=== PATIENT | male | born 1955 | race Caucasian/White ===

== ENCOUNTER 2017-07-15 17:04 | Inpatient (IN) | payer OTHER ==
[~2017-07-15] VITALS: Ht 182.9 cm; Wt 109.8 kg
[~2017-07-15 17:04] MED LIST: PERCOCET 5-3251 EACH PO
--- NOTE | 2017-07-15 17:58 | RADIOLOGY REPORT ---
EXAMINATION: XR CHEST CLINICAL INFORMATION: 62-year-old man with chest pain. COMPARISON: 03/22/2016 chest radiograph TECHNIQUE: 2 views of the chest were obtained. FINDINGS: The lungs are well expanded and clear. No focal airspace consolidation or pulmonary edema is appreciated. Heart size is within the range of normal. There are no pleural effusions. IMPRESSION: No radiographic evidence of an acute cardiopulmonary process.
[2017-07-15 19:51] LABS: ABSOLUTE BASOPHIL COUNT 0 /CUMM (0.0-0.2); ABSOLUTE EOSINOPHIL COUNT 0.1 /CUMM (0.0-0.7); ABSOLUTE GRANULOCYTE CT 6.9 /CUMM (1.4-6.5); ABSOLUTE LYMPH COUNT 1.4 /CUMM (1.2-3.4); ABSOLUTE MONOCYTE COUNT 0.7 /CUMM (0.10-0.60); BASOPHIL % 0.3 % (0.0-2.0); EOSINOPHIL % 1.5 % (0-5); GRANULOCYTE % 75.3 % (42.2-75.2); HEMATOCRIT 50.3 % (42-52); MEAN CORPUSCULAR HGB 26.6 PG (27.0-31.0); MEAN CORPUSCULAR HGB CONC 32.5 G/DL (33.0-37.0); MEAN PLATELET VOLUME 9.4 FL (7.4-10.4); PLATELET COUNT 197 /CUMM (130-400); RBC DISTRIBUTION WIDTH 13.6 % (11.5-14.5); RED BLOOD CELL CT 6.14 /CUMM (4.70-6.10); WHITE BLOOD CELL COUNT 9.2 /CUMM (4.8-10.8)
--- NOTE | 2017-07-15 20:26 | ED CARDIAC/CP/PALPITATIONS ---
History of Present Illness General Chief Complaint: Chest Pain Stated Complaint: HEARTBURN CHEST PRESSURE Source: patient Exam Limitations: no limitations Vital Signs & Intake/Output Vital Signs & Intake/Output Vital Signs Date Time Temp Pulse Resp B/P B/P Pulse O2 O2 Flow FiO2 Mean Ox Delivery Rate 07/15 2325 78 16 124/74 98 Nasal 2.0L Cannula 07/15 2301 131/60 07/15 2302 131/60 07/15 2230 137/76 07/15 2141 92 16 137/76 99 Room Air 07/15 2044 97.3 88 18 130/87 98 Room Air 07/15 1715 98.6 106 18 178/83 98 Room Air ED Intake and Output 07/16 0000 07/15 1200 Intake Total 30 Output Total Balance 30 Intake, Oral 30 Patient 240 lb Weight Weight Reported by Patient Measurement Method Allergies Coded Allergies: No Known Drug Allergies (03/22/16) Reconcile Medications Multivitamin (Daily Multiple Vitamin) 1 EACH TABLET 1 TAB PO DAILY Supplement (Reported) Triage Note: 62 YO MALE TO TRIAGE C/O CHEST PAIN IN CENTER OF CHEST AND L ARM TINGLING ON SATURDAY. STATE TOOK PEPTO BISMOL AND IT SUBSIDED THE PAIN IN HIS CHEST. STATES IT HAPPENED AGAIN TODAY. STATES THE HEARTBURN LASTED TO APPROX 2 HOURS TODAY. STATES HE HAS BEEN BELCHING ALOT TODAY. Triage Nurses Notes Reviewed? yes Onset: Gradual Duration: day(s):, intermittent Timing: recent history Location: central Radiation: left arm Activities at Onset: none Modifying Factors: Improves With: rest. Aspirin Today: no aspirin today Associated Symptoms: nausea/vomiting HPI: 62 yo gentleman presents with 2 episodes of chest pain. He notes the first episode was 3 days ago, lasted 2-3 hours. "I felt a pressure on my chest and my left arm was really heavy and tingling." The second episode happened earlier today. "The same thing happened... I felt a pressure in my chest... and my left arm was tingling.... I still feel it... it's maybe a 2-3 out of 10." He notes no dyspnea, diaphoresis, shortness of breath, syncopal symptoms. He is otherwise well. Past History Travel History Traveled to [place] past 21 day No Medical History Any Pertinent Medical History? 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 No Review of Systems Review of Systems Constitutional: Reports: no symptoms. EENTM: Reports: no symptoms. Respiratory: Reports: no symptoms. Cardiovascular: Reports: no symptoms. GI: Reports: no symptoms. Genitourinary: Reports: no symptoms. Musculoskeletal: Reports: no symptoms. Skin: Reports: no symptoms. Neurological/Psychological: Reports: no symptoms. Hematologic/Endocrine: Reports: no symptoms. Immunologic/Allergic: Reports: no symptoms. All Other Systems: Reviewed and Negative Physical Exam Physical Exam General Appearance: well developed/nourished, no apparent distress Head: atraumatic, normal appearance Eyes: Bilateral: normal appearance. Ears, Nose, Throat: normal pharynx, normal ENT inspection Neck: normal inspection, supple, full range of motion Respiratory: normal breath sounds, chest non-tender, no respiratory distress, quiet respiration, lungs clear Cardiovascular: regular rate/rhythm Gastrointestinal: normal bowel sounds, soft, non-tender, no organomegaly Back: normal inspection, normal range of motion Extremities: normal inspection, normal capillary refill, normal range of motion, no edema Neurologic/Psych: no motor/sensory deficits, awake, alert, oriented x 3 Skin: intact, normal color, warm/dry Core Measures ACS in differential dx? Yes No ASA d/t pt given aspirin CVA/TIA Diagnosis No Sepsis Present: No Sepsis Focused Exam Completed? No Progress Differential Diagnosis: AMI, aortic dissection, CHF/pulm edema, musculoskeletal pain, myocarditis, pneumonia, pulmonary embolism Plan of Care: Orders Procedure Date/time Status Nothing by Mouth 07/16 B Active TROPONIN LEVEL 07/16 0730 Active EKG 07/16 0700 Active TROPONIN LEVEL 07/16 0130 Active EKG 07/16 0130 Active ECHOCARDIOGRAM 07/15 2322 Active Lab Add-on Test 07/15 2318 Active Admit to inpatient 07/15 2314 Active TRC EVALUATION (GEN) 07/16 2211 Active OXYGEN SETUP (GEN) 07/16 2211 Active Pathway - chart 07/16 2211 Active House Staff 07/16 2211 Active Patient Data 07/16 2211 Active Code Status 07/16 2211 Active EKG 07/16 2207 Active Patient Data 07/15 2058 Active EKG 07/15 2041 Active MAGNESIUM 07/15 1932 Active LIPID PANEL 07/15 1932 Active GLYCOSYLATED HGB 07/15 193 Active TROPONIN LEVEL 07/15 171 Active D-DIMER 07/15 1712 Complete COMPREHENSIVE METABOLIC PANEL 07/15 171 Active CBC WITHOUT DIFFERENTIAL 07/15 1712 Complete EKG 07/15 170 Active VTE Mechanical Prophylaxis 07/15 UNK Active Vital Signs 07/15 UNK Active MISTAKE 07/15 UNK Active Intake & Output 07/15 UNK Active Hemoccult 07/15 UNK Active Current Medications Sig/Osei Start time Last Medication Dose Stop Time Status Admin Aspirin 81 MG DAILY 07/16 1000 AC (Aspirin) Clopidogrel Bisulfate 75 MG DAILY 07/16 1000 AC (Plavix) Atorvastatin Calcium 80 MG 1700 07/15 2315 AC (Lipitor) Metoprolol Tartrate 25 MG BID 07/15 2244 AC 07/15 (Lopressor) 2302 Heparin Sodium 25,000 UNIT Q24H 07/15 204 AC 07/15 (Porcine) 2100 (Heparin) Sodium Chloride 500 ML Laboratory Tests 07/15/171932: Anion Gap 13, Estimated GFR > 60, BUN/Creatinine Ratio 15.5, Glucose 101 H, Hemoglobin A1c Pending, Calcium 10.5 H, Magnesium 2.1, Total Bilirubin 0.5, AST 40, ALT 36, Alkaline Phosphatase 64, Troponin I 1.43 *H, Total Protein 7.3, Albumin 4.4, Globulin 2.9, Albumin/Globulin Ratio 1.5, Triglycerides 146, Cholesterol 222 H, LDL Cholesterol, Calc 139 H, HDL Cholesterol 54, Cholesterol/HDL Ratio 4, D-Dimer High Sensitivty < 200, CBC w Diff NO MAN DIFF REQ, RBC 6.14 H, MCV 82.0, MCH 26.6 L, MCHC 32.5 L, RDW 13.6, MPV 9.4, Gran % 75.3 H, Lymphocytes % 15.4 L, Monocytes % 7.5, Eosinophils % 1.5, Basophils % 0.3, Absolute Granulocytes 6.9 H, Absolute Lymphocytes 1.4, Absolute Monocytes 0.7 H, Absolute Eosinophils 0.1, Absolute Basophils 0 Diagnostic Imaging: Viewed by Me: Radiology Read, CT Scan. Discussed w/RAD: Radiology Read, CT Scan. Radiology Impression: PATIENT: DAVON MNA PRESENT AGE: 62 PATIENT ACCOUNT NO: [id number] : 57 LOCATION: [facility] ORDERING PHYSICIAN: Slim Markham MD SERVICE DATE: 07/15/17 EXAM TYPE: CAT - CTA CHEST-PULMONARY EMBOLISM EXAMINATION: CT ANGIOGRAM OF THE CHEST WITH AND WITHOUT CONTRAST (CT PULMONARY ANGIOGRAM FOR PE) CLINICAL INFORMATION: Chest pain. Myocardial infarction. COMPARISON: Chest x-ray 2017 TECHNIQUE: Prior to contrast administration, noncontrast localization images were obtained. Subsequently, multidetector volumetric imaging was performed from the thoracic inlet to below the diaphragms following the administration of 95 mL Optiray 350 intravenous contrast. No contrast reaction reported. Sagittal, coronal, and MIP oblique sagittal reformatted images were obtained on the CT workstation, uploaded to PACS, and reviewed. Total exam dose- length product 579.65 mGy-cm. FINDINGS: QUALITY OF STUDY/CONTRAST BOLUS: Satisfactory PULMONARY ARTERIES: No central or segmental pulmonary emboli. THORACIC AORTA: No aneurysm or dissection. LUNG: Asymmetric elevation of left diaphragm over the right with left basilar linear atelectasis. The central bronchial airways are open. No bronchiectasis. No interstitial or reticular opacity. PLEURA: No pleural effusion or pneumothorax. MEDIASTINUM: Normal heart size. No pericardial effusion. No hilar or mediastinal lymphadenopathy. No evidence of septal bowing or right heart strain. CHEST WALL/AXILLA: No axillary or internal mammary lymphadenopathy. OSSEOUS STRUCTURES: Degenerative spondylosis spine with multilevel endplate spurring of the vertebrae. UPPER ABDOMEN: Unremarkable. No reflux of contrast into the hepatic veins to suggest elevated right heart pressures. IMPRESSION: 1. No evidence of pulmonary embolism. 2. No acute abnormality of the chest. VTE: negative DICTATED BY: Harsh Matthew MD DATE/TIME DICTATED:07/15/172319 SMOKE JUMPER:JORGE DATE/ TIME TRANSCRIBED:07/15/172319 CONFIDENTIAL, DO NOT COPY WITHOUT APPROPRIATE AUTHORIZATION. <Electronically signed in Other Vendor System> SIGNED BY: Harsh Matthew MD 07/15/178 CXR Impression: no acute abnormality, no infiltrates, normal size heart, normal mediastinum Initial ED EKG: nsr, non specific st changes. Repeat EKG: changed Comments: ekg follow up ... slight st seg elevation in v1... discussed with dr. renner. Departure Departure Disposition: STILL A PATIENT Condition: Stable Clinical Impression Primary Impression: Myocardial infarction Referrals: Patrick OLIVER,Dave Rivers (PCP/Family) Departure Forms: Customer Survey General Discharge Information Comments 07/15/17, 23:58.... pt is chest pain free after supportive measures. Admission Note Spoke With: Bao OLIVER PHD,Omar Oconnor Documentation of Exam: Documentation of any treatments & extenuating circumstances including Concerns Regarding Discharge (functional status, medication knowledge or non-compliance, living conditions, etc.) that warrant an admission rather than observation: 07/15/17 20:44... discussed with dr. renner.... pt to be admitted to the [facility] for medical management prior to likely cardiac cath... will check ct angio to assess for PE vs dissection in preparation for likely cath. 07/15/17, 21:50... discussed with dr. renner... subsequent ekg with suspicious v1 st seg elevation...Ekgs faxed to dr. renner.... will add lopressor 5mg iv x2 and repeat ekg. Critical Care Note Critical Care Note Critical Care Time: 30-74 min
--- NOTE | 2017-07-15 21:01 | History & Physical ---
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
--- NOTE | 2017-07-15 21:10 | History & Physical ---
General Information and HPI MD Statement: I have seen and personally examined DAVON MAN and documented this H&P. Source of Information: patient History of Present Illness: This is a 62-year-old gentleman w/no significant PMH who presented to the hospital for evaluation of chest discomfort/dyspepsia. According to the patient, he experienced an episode of heart burn and chest discomfort on Saturday which lasted for approximately 2.5 hours and resolved after taking Pepto-bismol. Today, after taking his son to the airport around 2 PM, he experienced dyspepsia , heartburning and chest discomfort which radiated to his left arm, he experienced tingling in his left arm. He tried Pepti-bismol which helped alleviating his symptoms to some extent however his chest discomfort continued and he decided to come to the hospital. The patient denies having any cardiac history, hypertension, or diabetes. He has never experienced these symptoms before Saturday. He has an active lifestyle,"[id number] steps" at work measured via his [employer]. Per patient, he usually climbs 3 flights of stairs at work without any problems. Has never had any exertional dyspnea, orthopnea or other symptoms. Denies tobacco, illicit drug use. Drinks socially. The patient reports that he has extensive cardiac history in his family, his brother had quadruple bypass at age of 50, also his father had multiple MIs. In the ED, he was noted to have elevated troponin with EKG changes. He was started on IV heparin, received aspirin, Plavix, oxygen and nitroglycerin. At the time of our interview, he reports that his chest discomfort has subsided to 1-2 out of 10 but is still present. Allergies/Medications Allergies: Coded Allergies: No Known Drug Allergies (03/22/16) Home Med list Aspirin (Aspirin*) 81 MG TAB.CHEW 81 MG PO DAILY HEART Atorvastatin Calcium 80 MG TABLET 80 MG PO 1700 CHOL Clopidogrel Bisulfate (Plavix) 75 MG TABLET 75 MG PO DAILY PRN PALTELET AGG Metoprolol Tartrate 25 MG TABLET 25 MG PO BID HEART Multivitamin (Daily Multiple Vitamin) 1 EACH TABLET 1 TAB PO DAILY Supplement (Reported) Nitroglycerin/D5w (Ntg 25 MG/250 Ml in D5w) 25 MG/250 ML (0.1 MG/ML) INFUS..BTL 10 MCG IV CONTINUOUS CP Past History Travel History Traveled to [place] past 21 day No Medical History Neurological: NONE EENT: NONE Cardiovascular: NONE Respiratory: NONE Gastrointestinal: ELIESER INGUNAL HERNIAS Hepatic: NONE Renal: NONE Musculoskeletal: NONE Psychiatric: NONE Endocrine: NONE Blood Disorders: NONE Cancer(s): 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 EENTM: Reports: no symptoms. Denies: visual changes. Cardiovascular: Reports: chest pain (chest discomfort/dyspepsia). Denies: edema, orthopena, palpitations, peripheral edema, syncope. Respiratory: Denies: cough, hemoptysis, orthopnea, short of breath, sputum production, stridor, wheezing. GI: Denies: abdominal pain, bloating, constipation, diarrhea, distention, bowel incontinence, melena, nausea, bloody stool, changes in stool, vomiting, steatorrhea. Genitourinary: Reports: no symptoms. Musculoskeletal: Reports: no symptoms. Skin: Reports: no symptoms. Neurological/Psychological: Reports: no symptoms. Hematologic/Endocrine: Reports: no symptoms. Immunologic/Allergic: Reports: no symptoms. All Other Systems: Reviewed and Negative Exam & Diagnostic Data Last 24 Hrs of Vital Signs/I&O Vital Signs Date Time Temp Pulse Resp B/P B/P Pulse O2 O2 Flow FiO2 Mean Ox Delivery Rate 07/15 2141 92 16 137/76 99 Room Air 07/15 2044 97.3 88 18 130/87 98 Room Air 07/15 1715 98.6 106 18 178/83 98 Room Air Physical Exam General Appearance Alert, Oriented X3, Cooperative, No Acute Distress Skin No Rashes, No Breakdown, No Significant Lesion Skin Temp/Moisture Exam: Warm/Dry Sepsis Skin Exam (color): Normal for Ethnicity HEENT Atraumatic, PERRLA, EOMI, Mucous Membr. moist/pink Neck Supple, No JVD, No thryomegaly, +2 Carotid Pulse wo Bruit, No LAD Lymphatic Axillary nl Cardiovascular Regular Rate, Normal S1, Normal S2, No Murmurs Lungs Clear to Auscultation, Normal Air Movement Abdomen Normal Bowel Sounds, Soft, No Tenderness, No Hepatospenomegaly, No Masses Neurological Normal Speech, Strength at 5/5 X4 Ext, Normal Tone, Sensation Intact, Cranial Nerves 3-12 NL, Reflexes 2+ Extremities No Clubbing, No Cyanosis, No Edema, Normal Pulses, No Tenderness/ Swelling Vascular Normal Pulses, Pulses Symmetrical Diagnostic Data EKG Results SR, rate 87 , ? CEFERINO in V1-V3 vs early repolarization. QTC 433. CXR Results No acute cardiopulmonary disease. Assessment/Plan Assessment: This is a 62-year-old gentleman with past medical history with no significant past medical history who presents to the ED with chest discomfort/dyspepsia. He was noted to have positive troponin with EKG changes. He was started on IV heparin, nitroglycerin, oxygen, aspirin and Plavix in the ED. Update: 07/15/17 11 pm: The patient reports that his chest pain has resolved. He is s/p IV metoprolol 5 mg x2. HR in 80s-90s on the monitor; will start metoprolol 25 BID. Assessment/plan: #Chest discomfort/dyspnea: likely 2/2 ACS. The patient has elevated troponin with EKG changes. There is? ST elevation versus repolarization in leads V1 to V3. Discussed with attending museum director, Dr. Gore, who suggests that these changes are leaning more towards early repolarization. Patient's chest pain has resolved. FERNANDO score 2 (positive biomarkers and EKG change). * Continue with supplemental oxygen, nitroglycerin * Check echocardiogram * Continue with IV heparin, aspirin and Plavix * Monitor on telemetry for any arrhythmia * Continue with metoprolol 25 BID * Will start the patient on atorvastatin 80 mg daily * Monitor electrolytes, maintain potassium above 4 and magnesium above 2 * Will check lipid profile, TFT, hemoglobin A1c * Please inform Dr. Gore if patient's chest discomfort recurs or if he develops any chest pain. #DVT prophylaxis: * Being addressed by IV heparin #CODE STATUS: * Patient is full code The case was discussed with attending Dr. Gore who agrees with the above mentioned plan. Please refer to his addendum for further recommendations. As Ranked By This Provider Problem List: 1. Myocardial infarction Core Measures/Misc (01/27) Acute Coronary Syndrome ACS Diagnosis: Yes Congestive Heart Failure Congestive Heart Failure Diagnosis No Cerebrovascular Accident CVA/TIA Diagnosis: No VTE (View Protocol) VTE Risk Factors Other No Mechanical VTE Prophylaxis d/t Other No VTE Pharm Prophylaxis d/t Other Sepsis (View protocol) Sepsis Present: No
[2017-07-15] MEDS ORDERED: DAILY MULTIPLE1 EACH PO (22:16)
--- NOTE | 2017-07-15 23:28 | CT SCAN REPORT ---
EXAMINATION: CT ANGIOGRAM OF THE CHEST WITH AND WITHOUT CONTRAST (CT PULMONARY ANGIOGRAM FOR PE) CLINICAL INFORMATION: Chest pain. Myocardial infarction. COMPARISON: Chest x-ray 07/15/2017 TECHNIQUE: Prior to contrast administration, noncontrast localization images were obtained. Subsequently, multidetector volumetric imaging was performed from the thoracic inlet to below the diaphragms following the administration of 95 mL Optiray 350 intravenous contrast. No contrast reaction reported. Sagittal, coronal, and MIP oblique sagittal reformatted images were obtained on the CT workstation, uploaded to PACS, and reviewed. Total exam dose-length product 579.65 mGy-cm. FINDINGS: QUALITY OF STUDY/CONTRAST BOLUS: Satisfactory PULMONARY ARTERIES: No central or segmental pulmonary emboli. THORACIC AORTA: No aneurysm or dissection. LUNG: Asymmetric elevation of left diaphragm over the right with left basilar linear atelectasis. The central bronchial airways are open. No bronchiectasis. No interstitial or reticular opacity. PLEURA: No pleural effusion or pneumothorax. MEDIASTINUM: Normal heart size. No pericardial effusion. No hilar or mediastinal lymphadenopathy. No evidence of septal bowing or right heart strain. CHEST WALL/AXILLA: No axillary or internal mammary lymphadenopathy. OSSEOUS STRUCTURES: Degenerative spondylosis spine with multilevel endplate spurring of the vertebrae. UPPER ABDOMEN: Unremarkable. No reflux of contrast into the hepatic veins to suggest elevated right heart pressures. IMPRESSION: 1. No evidence of pulmonary embolism. 2. No acute abnormality of the chest. VTE: negative
[2017-07-16 01:56] VITALS: BP 150/60
--- NOTE | 2017-07-16 03:02 | Event Note ---
Event Note Event Note: S: Rising trops B: Spoke with spoke with Dr. Gore about rising troponins from 1.43 -> 2.27 A/R: Spoke with Dr. Gore who recommended making the patient NPO for possible cath tomorrow. 5:04 am got called by tobias for chest tightness. 5:10AM contacted Dr. Gore again who instructed to give 5mg iv lopressor and start nitroglycerin drip.
[2017-07-16 05:26] LABS: ABSOLUTE BASOPHIL COUNT 0 /CUMM (0.0-0.2); ABSOLUTE EOSINOPHIL COUNT 0.1 /CUMM (0.0-0.7); ABSOLUTE GRANULOCYTE CT 5.9 /CUMM (1.4-6.5); ABSOLUTE MONOCYTE COUNT 0.8 /CUMM (0.10-0.60); BASOPHIL % 0.5 % (0.0-2.0); EOSINOPHIL % 1.1 % (0-5); GRANULOCYTE % 75.3 % (42.2-75.2); MEAN CORPUSCULAR HGB 26.9 PG (27.0-31.0); MEAN CORPUSCULAR HGB CONC 32.8 G/DL (33.0-37.0); MEAN CORPUSCULAR VOLUME 81.9 FL (80.0-94.0); PLATELET COUNT 184 /CUMM (130-400); PTT 51 SEC (25-37); RBC DISTRIBUTION WIDTH 13.4 % (11.5-14.5); RED BLOOD CELL CT 5.52 /CUMM (4.70-6.10); WHITE BLOOD CELL COUNT 7.8 /CUMM (4.8-10.8)
[2017-07-16 05:38] LABS: HEMATOCRIT 45.3 % (42-52)
[2017-07-16 07:45] VITALS: BP 136/70
[2017-07-16 08:05] VITALS: BP 136/70
--- NOTE | 2017-07-16 08:14 | Cons- Cardiology ---
General Information and HPI Consulting Request Date of Consult: 07/16/17 Requested By: Bao OLIVER PHD,Omar Oconnor History of Present Illness: This patient is a 62 year old male with no prior cardiac history. He does carry a history of tobacco abuse and a strong family history or premature coronary artery disease. On Saturday, this patient suddenly noted a moderate precordial chest pressure radiating to his left arm. It lasted a short time but subsequently re-occured prompting his presentation to [facility] where he ruled in for a NSTEMI. He denies any associated nausea, vomiting, diaphoresis, shortness of breath, lightheadedness or palpitations. At baseline, he walks without problem. Allergies/Medications Allergies: Coded Allergies: No Known Drug Allergies (03/22/16) Home Med List: Multivitamin (Daily Multiple Vitamin) 1 EACH TABLET 1 TAB PO DAILY Supplement (Reported) Review of Systems Review of Systems: A twelve point review of systems is unremarkable. 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 Father: CAD at age 52 Brother: CAD s/p CABG at 52 Mother: A;zheimer's dementia Psychosocial History Services at Home: None Smoking Status: Former Smoker (Quit 2 years ago) ETOH Use: denies use (rare) Exam & Diagnostic Data Vital Signs and I&O Vital Signs Date Time Temp Pulse Resp B/P B/P Pulse O2 O2 Flow FiO2 Mean Ox Delivery Rate 07/16 0805 87 136/70 07/16 0520 852 150/68 07/16 0400 97 Nasal 2.0L Cannula 07/16 0220 98 Nasal 2.0L Cannula 07/16 015 98 Nasal 2.0L Cannula 07/16 015 98.2 69 16 150/60 98 Nasal 2.0L Cannula 07/15 2325 78 16 124/74 98 Nasal 2.0L Cannula 07/15 2302 131/60 07/15 2302 131/60 07/15 2230 137/76 07/15 2141 92 16 137/76 99 Room Air 07/16 2043 97.3 88 18 130/87 98 Room Air 07/15 1714 98.6 106 18 178/83 98 Room Air Intake & Output 07/16 0807/16 0000 07/15 1600 07/15 0000 Intake Total 190 30 Output Total 820 Balance -630 30 Intake, IV 190 Intake, Oral 30 Output, Urine 820 Patient 242 lb 240 lb Weight Weight Bed scale Reported by Patient Measurement Method Physical Exam: General: WD/WN male in NAD; alert and oriented x 3 HEENT: NC/AT, PERRl, EOMI Neck: no JVD, no carotid bruit Heart: RRR with 2/6 systolic murmur at the apex Lungs: clear bilaterally ABdomen: soft, NT, +ve bowel sounds Extremities: no edema Assessment/Plan Assessment/Plan * This patient has ruled in for a NSTEMI. We will pursue a cardiac catheterization. The risks and benefits of this procedure have been discussed and the patient agrees to proceed. Continue full anticoagulation with aspirin, Plavix and IV heparin. Continue a statin, NTG and beta harrison. Consult Acknowledgment - Thank you for your consult request.
--- NOTE | 2017-07-16 08:14 | Discharge Summary ---
Visit Information Visit Dates Admission Date: 07/15/17 Discharge Date: 07/16/2017 Hospital Course Course Attending Physician: Bao OLIVER PHD,Omar Oconnor Primary Care Physician: Patrick OLIVER,Dave Rivers Consulting Request: Consulting Specialty: Cardiology Hospital Course: This is a 62-year-old gentleman w/no significant PMH and an active lifestyle who presented to the hospital for evaluation of chest discomfort/dyspepsia. He described his pain as a heartburn type pain with some radiating to his right arm. The patient reports that he has extensive cardiac history in his family, his brother had quadruple bypass at age of 50, also his father had multiple MIs. Denies tobacco, illicit drug use. Drinks socially. In ED he was found to have BP 178/83 elevated troponin and EKG with ST changes suggestive of ischemic changes with ST elevation vs early repolarization. Overnight his episode of chest pain returned around 5:40 am, BP 150/40 and pt was started on 5mg of IV lopressor and a nitro drip. His troponins trended from 1.43--> 2.27. PT was seen for the following problems: NSTEMI: Pt has elevated trops and ST segment changes concerning for early repolerization or elevation He has known significant family hx of CAD. * Heparin drip * ASA 81 * Plavix 75 * Echocardiogram PENDING * Cholesterol planel shows elevated 222 TCHOL and LDL 139. * Hi-intensity statin onboard * HBA1C pending * Nitro drip Allergies: Coded Allergies: No Known Drug Allergies (03/22/16) Disposition Summary Disposition Principal Diagnosis: ACS Additional Diagnosis: HTN Discharge Disposition: other general hospital Discharge Instructions General Discharge Information Code Status: Full Code Patient's Diet: NPO Patient's Activity: TOLERATED Follow-Up Instructions/Appts: PLS FOLLOW UP WITH DR. GORMAN Medications at Discharge Discharge Medications: Continue taking these medications: Multivitamin (Daily Multiple Vitamin) 1 EACH TABLET 1 Tablet ORAL DAILY Start taking the following new medications: Clopidogrel Bisulfate (Plavix) 75 MG TABLET 75 Milligram ORAL DAILY as needed for PALTELET AGG Qty = 30 No Refills Atorvastatin Calcium (Atorvastatin Calcium) 80 MG TABLET 80 Milligram ORAL 5 PM Qty = 30 No Refills Metoprolol Tartrate (Metoprolol Tartrate) 25 MG TABLET 25 Milligram ORAL TWICE DAILY Qty = 30 No Refills Aspirin (Aspirin*) 81 MG TAB.CHEW 81 Milligram ORAL DAILY Qty = 30 No Refills Nitroglycerin/D5w (Ntg 25 MG/250 Ml in D5w) 25 MG/250 ML (0.1 MG/ML) INFUS..BTL 10 Microgram INTRAVEN CONTINUOUS Qty = 1 No Refills Copies To: Patrick OLIVER,Dave Rivers
[2017-07-16] MEDS ORDERED: METOPROLOL TART25 M1 PO (08:17)
[2017-07-16] MEDS ORDERED: PLAVIX75 M1 PO (08:17)
[2017-07-16] MEDS ORDERED: ATORVASTATIN CA80 M1 PO (08:17)
[2017-07-16] MEDS ORDERED: ASPIRIN81 M4 PO (08:17)
[2017-07-16 08:18] LABS: PT 12.2 SEC (9.4-12.5)
--- NOTE | 2017-07-16 08:18 | Patient Discharge Instructions ---
Discharge Instructions General Discharge Information You were seen/treated for: CHEST PAIN ELEVATED TROPONIN Watch for these problems: CHEST PAIN FEVER SOB Special Instructions: FOLLOW UP WITH DR. SHERIF Dover Recommended Diet: Heart Healthy Activity Activity Self Limited: Yes Acute Coronary Syndrome Inclusion Criteria At DC or during hospital stay patient has or had the following: ACS DIAGNOSIS Yes Discharge Core Measures Meds if any: Prescribed or Continued at Discharge Meds if any: NOT Prescribed or Continued at Discharge Congestive Heart Failure Inclusion Criteria At DC or during hospital stay patient has or had the following: CHF DIAGNOSIS No Discharge Core Measures Meds if any: Prescribed or Continued at Discharge Meds if any: NOT Prescribed or Continued at Discharge Cerebrovascular accident Inclusion Criteria At DC or during hospital stay patient has or had the following: CVA/TIA Diagnosis No Discharge Core Measures Meds if any: Prescribed or Continued at Discharge Meds if any: NOT Prescribed or Continued at Discharge Venous thromboembolism Inclusion Criteria VTE Diagnosis No VTE Type NONE VTE Confirmed by (Test) NONE Discharge Core Measures - Per Current guidelines, there needs to be overlap - treatment for the first 5 days of Warfarin therapy. - If discharged on Warfarin prior to 5 days of - overlap therapy, the patient will need to be - assessed for post discharge needs including - *Post discharge parental anticoagulation - *Warfarin and/or parental anticoagulation education - *Follow up date to check INR post discharge At least 5 days overlap therapy as Inpatient No Meds if any: Prescribed or Continued at Discharge Note: Overlap Therapy is Warfarin and Anticoagulant Meds if any: NOT Prescribed or Continued at Discharge
[2017-07-16] MEDS ORDERED: NTG 25 MG/25 MG/250 IV (08:23)
== END 2017-07-16 08:41 | disposition short-term general hospital (02) | DRG 282 ==
LOC: ERH 17:04 → ENRESERV 23:12 → ERHI 23:14 → CRI 07-16 00:14
PROVIDERS: Internal Medicine Interventional Cardiology; Physician Assistant Medical
DX: I21.4 Non-ST elevation (NSTEMI) myocardial infarction (principal); I10 Essential (primary) hypertension; Z79.82 Long term (current) use of aspirin; Z82.49 Family history of ischemic heart disease and other diseases of the circulatory system; Z87.891 Personal history of nicotine dependence
CPT/HCPCS: ERO; 36415; 71046; 82436; 93005; 93010; 96374; 96375; 96376; 99291; J1644; J3490; J7060